=== PATIENT | male | born 1990 | race Caucasian/White ===

== ENCOUNTER 2020-12-12 08:34 | Emergency (ER) | payer MEDICAID, MEDICARE ==
[~2020-12-12] VITALS: Ht 195.6 cm; Wt 108.9 kg
[~2020-12-12 08:34] MED LIST: CITA40TA12 PO; CLON1TAB; ENOX40SY4 SQ; LAMO300T PO; OXYC20TA2 PO; RISP2TAB35
[2020-12-12] MEDS ORDERED: DIPHENHYDRAMINE 50 MG/ML, 1ML ONE (08:58)
[2020-12-12] MEDS ORDERED: METOCLOPRAMIDE 5 MG/ML, 2ML ONE (08:59)
[2020-12-12] MEDS ORDERED: DIPHENHYDRAMINE 50 MG/ML, 1ML IVPush ONE (09:00)
[2020-12-12] MEDS ORDERED: METOCLOPRAMIDE 5 MG/ML, 2ML IVPush ONE (09:00)
[2020-12-12] MEDS ORDERED: SODIUM CHLORIDE 0.9% 1,000ML IVBOLUS ONE (09:00)
--- NOTE | 2020-12-12 09:15 | NUR ---
MULTIPLE ATTEMPTS AT PIV START WITH NO SUCCESS. DEVIKA ANDERSON TO ASSIST.
[2020-12-12 09:33] LABS: BASOPHILS % (AUTO) 0 % (0-1); EOSINOPHILS % (AUTO) 2 % (1-7); LYMPHOCYTES % (AUTO) 25 % (22-44); MD NO; MEAN PLATELET VOLUME 8.1 fL (7.4-10.4); MONOCYTES % (AUTO) 10 % (2-9); NEUTROPHILS % (AUTO) 63 % (42-75); PLATELET COUNT 317 x10^3/uL (130-400); RED BLOOD COUNT 5.42 x10^6/uL (4.38-5.82); RED CELL DISTRIBUTION WIDTH 14.6 % (9.4-14.8)
--- NOTE | 2020-12-12 09:35 | NUR ---
PT TO CT
[2020-12-12 09:42] LABS: ANION GAP 11 mmol/L (5-15); CALCIUM 9.4 mg/dL (8.5-10.1); CHLORIDE 106 mmol/L (98-107); CREATININE 0.86 mg/dL (0.7-1.3)
--- NOTE | 2020-12-12 09:45 | NUR ---
PT BACK FROM CT. MONITOR IN PLACE.
[2020-12-12 09:52] VITALS: BP 111/64
--- NOTE | 2020-12-12 09:52 | NUR ---
PT IS PACING THE ROOM AND QUITE ANXIOUS. EDP NOTIFIED.
[2020-12-12] MEDS ORDERED: LORazepam 2 MG/ML, 1ML ONE (09:55)
[2020-12-12] MEDS ORDERED: LORazepam 2 MG/ML, 1ML IVPush ONE (10:00)
--- NOTE | 2020-12-12 10:51 | NUR ---
Patient is resting comfortably in bed. Vital Signs within normal limits.
[2020-12-12] MEDS ORDERED: POTASSIUM CHLORIDE 20 MEQ TAB.ER.PRT PO ONE (11:00)
--- NOTE | 2020-12-12 11:15 | NUR ---
PT UNABLE TO GIVE UA THROUGHOUT STAY.
[2020-12-12] MEDS ORDERED: POTASSIUM CHLORIDE 20 MEQ TAB.ER.PRT ONE (11:16)
== END 2020-12-12 11:19 | disposition home or self-care (01) ==
LOC: ED 09:02
DX: R51.9 Headache, unspecified (principal); E87.6 Hypokalemia; F41.1 Generalized anxiety disorder; R11.2 Nausea with vomiting, unspecified; R44.0 Auditory hallucinations; R41.0 Disorientation, unspecified; I10 Essential (primary) hypertension; Z88.9 Allergy status to unspecified drugs, medicaments and biological substances
CPT/HCPCS: 36415; 70450; 80048; 82040; 84443; 85025; 96361; 96374; 96375; 99284; J1200; J2060; J2765; J7030